=== PATIENT | male | born 1965 | race Caucasian/White ===

== ENCOUNTER 2019-05-24 18:43 | Emergency (ER) | payer BC, OTHER ==
[~2019-05-24] VITALS: Ht 177.8 cm; Wt 136.8 kg
[~2019-05-24 18:43] MED LIST: AMLO10TA8 PO; BP MED PO; IBUP-1902 PO; LOSA50TA14 PO; METF500T17 PO
[2019-05-24 18:47] VITALS: BP 159/90
[2019-05-24] MEDS ORDERED: ACETAMINOPHEN 325 MG TABLET PO ONE (19:30)
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
--- NOTE | 2019-05-24 19:43 | NUR ---
PT TO IMAGING AT THIS TIME.
[2019-05-24] MEDS ORDERED: ACETAMINOPHEN 325 MG TABLET ONE (19:50)
--- NOTE | 2019-05-24 20:10 | NUR ---
PT REFUSING UA AT THIS TIME. PROVIDED WATER.
--- NOTE | 2019-05-24 20:42 | NUR ---
PT REFUSED UA AT THIS TIME, PROVIDED WATER.
[2019-05-24 21:19] LABS: MICROSCOPIC AUTO
[2019-05-24 21:21] LABS: CULTURE INDICATED? NO
== END 2019-05-24 21:50 | disposition home or self-care (01) ==
LOC: ED 21:11
DX: S39.012A Strain of muscle, fascia and tendon of lower back, initial encounter (principal); S83.92XA Sprain of unspecified site of left knee, initial encounter; S60.221A Contusion of right hand, initial encounter; V49.49XA Driver injured in collision with other motor vehicles in traffic accident, initial encounter; Y93.89 Activity, other specified; Y92.488 Other paved roadways as the place of occurrence of the external cause; Y99.8 Other external cause status
CPT/HCPCS: 72110; 81001; 99284